=== PATIENT | male | born 1965 | race Caucasian/White ===

== ENCOUNTER → 2021-06-02 | Outpatient (CLI) | payer OTHER ==
--- NOTE | 2021-06-02 12:10 | CARD ---
MR#: [id number] Date of Study: 06/02/2021 Ordering Physician: JOVITA HAMMOND, Referring Physician: JOVITA HAMMOND Tech: Kira Montemayor [facility] APPROVED REPORT EXAM: Two-dimensional and M-mode echocardiogram with Doppler and color Doppler. Other Information Quality : AverageHR: 79bpm Rhythm : NSR INDICATION Palpitations 2D DIMENSIONS RVDd3.4 (2.9-3.5cm)Left Atrium(2D)3.6 (1.6-4.0cm) IVSd1.0 (0.7-1.1cm)Aortic Root(2D)3.0 (2.0-3.7cm) LVDd5.3 (3.9-5.9cm)LVOT Diameter2.0 (1.8-2.4cm) PWd1.0 (0.7-1.1cm)LVDs3.8 (2.5-4.0cm) FS (%) 27.0 %SV69.2 ml Aortic Valve AoV Peak Will.165.4cm/sAoV VTI33.8cm AO Peak GR.10.9mmHgLVOT Peak Will.102.1cm/s AO Mean GR.4mmHgAVA (VMAX)2.01cm2 Mitral Valve MV E Leibigxi55.4cm/sMV DECEL DDOT176hg MV A Kdcfspre896.1cm/sE/A Ratio0.7 Tricuspid Valve TR P. Cnchrpay006dc/sTR Peak Gr.20mmHg LEFT VENTRICLE The left ventricle is normal size. There is normal left ventricular wall thickness. The left ventricu lar systolic function is normal. LV ejection fraction is 55-60%. There is normal LV segmental wall mo tion. Transmitral Doppler flow pattern is Grade I-abnormal relaxation pattern. RIGHT VENTRICLE The right ventricle is normal size. There is normal right ventricular wall thickness. The right ventr icular systolic function is normal. ATRIA The left atrium size is normal. The right atrium size is normal. The interatrial septum is intact wit h no evidence for an atrial septal defect or patent foramen ovale as noted on 2-D or Doppler imaging. AORTIC VALVE The aortic valve is normal in structure and function. Doppler and Color Flow revealed no significant aortic regurgitation. There is no significant aortic valvular stenosis. MITRAL VALVE The mitral valve is normal in structure and function. There is no evidence of mitral valve prolapse. There is no mitral valve stenosis. Doppler and Color-flow revealed trace to mild mitral regurgitation . TRICUSPID VALVE The tricuspid valve is normal in structure and function. Doppler and Color Flow revealed trace tricus pid regurgitation. There is no tricuspid valve stenosis. PULMONIC VALVE The pulmonary valve is normal in structure and function. Doppler and Color Flow revealed no pulmonic valvular regurgitation. GREAT VESSELS The aortic root is normal in size. The ascending aorta is normal in size. The IVC is normal in size a nd collapses >50% with inspiration. PERICARDIAL EFFUSION There is no evidence of significant pericardial effusion. Critical Notification Critical Value: No <Conclusion> The left ventricle is normal size. The left ventricular systolic function is normal. LV ejection fraction is 55-60%. Doppler and Color Flow revealed no significant aortic regurgitation. There is no significant aortic valvular stenosis. Doppler and Color-flow revealed trace to mild mitral regurgitation. Doppler and Color Flow revealed trace tricuspid regurgitation. Signed by : Joe Seay MD Electronically Approved : 06/02/2021 12:10:06
== END ==
LOC: ECHO 09:11
PROVIDERS: ATTEND Internal Medicine Cardiovascular Disease
DX: I34.0 Nonrheumatic mitral (valve) insufficiency (principal)
CPT/HCPCS: 93306

== ENCOUNTER → 2021-07-26 | Outpatient (CLI) | payer OTHER ==
--- NOTE | 2021-07-26 12:46 | RAD ---
MR#: [id number] Date of Study: 07/26/2021 Ordering Physician: JOVITA HAMMOND, Referring Physician: AAMIR MORAN Tech: SOHAIL Cowan ARRT (R) (N) APPROVED REPORT Test Type: Exercise Stress Nurse/Tech: Jeannette Lucia RN Test Indications: frequest PVC's, palps Cardiac History: No known cardiac Medications: See EMR Medical History: See EMR Resting ECG: SR w/ PVC's Resting Heart Rate: 76 bpm Resting Blood Pressure: 143/85mmHg Pretest Chest Pain: No chest painNo chest pain Nurse/Tech Notes Patient CTA, S1 S2. POST EXERCISE Reason for Termination: Reached target heart rate, Fatigue Target HR: Yes Max HR: 161 bpm 115% of Maximum Predicted HR: 139 bpm Exercise duration: 10:30 min:sec, 4 Stage Exercise capacity: 13.4METs Max Blood Pressure: 183/84mmHg Blood Pressure response to exercise: Normal blood pressure response during stress. Heart Rate response to exercise: Normal response Chest Pain: No. Arrhythmia: No. ST Change: No. INTERPRETATION Stress EKG Conclusion: Baseline EKG showed sinus rhythm with PVC. No ischemic changes at peak stress . No arrhythmias. Imaging Protocol IMAGE PROTOCOL: Rest Tc-99m/stress Tc-99m 1 day Rest: Stress: Viability: Radiopharm.Tc99m WdvmjtawuOm19p Sestamibi Dose10.4mCi 31mCi Img Date 07/26/2021 07/26/2021 Inj-Img [id number]. Rest Admin Site:IV - Left AntecubitalAdministrator:SOHAIL Cowan, ARRT (R)(N) Stress Admin Site: IV - Left AntecubitalAdministrator: RT Wanda (R)(N) STRESS DATA End Diast. Vol.124.0mlLVEDV index BSA57.0ml End Syst. Vol.33.0mlLVESV index BSA15.0ml Myocardial Ycsz859.0gEject. Qhygweai56.0% Stress Scores Regional WT0.00Summed WT1.00 Regional WM0.00Summed WM0.00 Study quality was good. Left Ventricular size was Normal at Rest and Stress. Lung uptake was . Left Ventricular ejection fraction is 71%. The rest and stress images show normal perfusion, normal contraction and thickening. LV Perf. Quant 17 Seg. SSS0.00 17 Seg. SRS2.00 17 Seg. SDS0.00 Stress Defect Extent (% LAD)0.00Rest Defect Extent (% LAD)0.00Rev. Defect Extent (% LAD)0.00 Stress Defect Extent (% LCX) 0.00Rest Defect Extent (% LCX)0.00Rev. Defect Extent (% LCX)0.00 Stress Defect Extent (% RCA)0.00Rest Defect Extent (% RCA)6.70Rev. Defect Extent (% RCA)0.00 Stress Defect Extent (% BEVERLY)0.00Rest Defect Extent (% BEVERLY)1.50Rev. Defect Extent (% BEVERLY)0.00 Conclusion 1. Treadmill exercise cardioisotope stress test did not show any evidence of ischemia or infarct. 2. Normal left ventricular systolic function with ejection fraction calculated at 71%. 3. Patient had excellent activity tolerance. Low risk for cardiac events. Signed by : Jovita Hammond, Electronically Approved : 07/26/2021 12:46:30
== END ==
LOC: NM 09:23
PROVIDERS: ATTEND Internal Medicine Cardiovascular Disease
DX: I49.3 Ventricular premature depolarization (principal); R00.2 Palpitations
CPT/HCPCS: 78452; 93017; A9500